=== PATIENT | female | born 1950 | race Caucasian/White ===

== ENCOUNTER 2021-04-06 10:51 | Observation (INO) ==
--- NOTE | 2020-11-27 10:10 | PAT Medication Instructions ---
Medication Instructions Date of Service November 27, 2020 Home Medications alprazolam 0.25 mg tablet 0.25 mg PO HS carvedilol 6.25 mg tablet 6.25 mg PO BID cetirizine 10 mg capsule (Zyrtec) 10 mg PO DAILY PRN fluticasone propionate 50 mcg/actuation nasal spray,suspension (Flonase Allergy Relief) 1 spray INTRANASAL DAILY PRN hydrochlorothiazide 25 mg tablet 25 mg PO QAM ipratropium bromide 0.02 % solution for inhalation 2.5 ml INHALATION Q6H PRN levothyroxine 75 mcg capsule 75 mcg PO QAM rosuvastatin 20 mg tablet 20 mg PO QDL triamcinolone acetonide 0.1 % topical cream 1 applic TOPICAL DAILY PRN Beet Root 1 dose PO QAM Cbd Gummie 2 dose PO QDL Lactobacil.acidophilus-Bifido.animalis 5 billion cell sprinkle capsule (Probiotic) 1 cap PO QAM ascorbic acid (vitamin C) 500 mg tablet,extended release (Vitamin C ER) 500 mg PO QAM aspirin 81 mg tablet,delayed release 81 mg PO 2XWK cholecalciferol (vitamin D3) 50 mcg (2,000 unit) tablet (Vitamin D3) 50 mcg PO QAM omega-3 fatty acids 1,000 mg PO QAM turmeric 400 mg capsule 400 mg PO QAM vit C,E,zinc,copper-lifbe5t 250 mg-lutein 5 mg-zeaxanthin 1 mg capsule (Ocuvite Adult 50 Plus) 1 cap PO QAM Continue as directed rosuvastatin 20 mg tablet 20 mg PO QDL aspirin 81 mg tablet,delayed release 81 mg PO 2XWK STOP taking 2 weeks before surgery omega-3 fatty acids 1,000 mg PO QAM turmeric 400 mg capsule 400 mg PO QAM vit C,E,zinc,copper-trdeb3u 250 mg-lutein 5 mg-zeaxanthin 1 mg capsule (Ocuvite Adult 50 Plus) 1 cap PO QAM Beet Root 1 dose PO QAM STOP taking 24 hours before surgery triamcinolone acetonide 0.1 % topical cream 1 applic TOPICAL DAILY PRN DO NOT take the morning of surgery cetirizine 10 mg capsule (Zyrtec) 10 mg PO DAILY PRN hydrochlorothiazide 25 mg tablet 25 mg PO QAM Cbd Gummie 2 dose PO QDL Lactobacil.acidophilus-Bifido.animalis 5 billion cell sprinkle capsule (Probiotic) 1 cap PO QAM ascorbic acid (vitamin C) 500 mg tablet,extended release (Vitamin C ER) 500 mg PO QAM cholecalciferol (vitamin D3) 50 mcg (2,000 unit) tablet (Vitamin D3) 50 mcg PO QAM Take morning of surgery With a small sip of water, OTHERWISE NOTHING TO EAT OR DRINK AFTER MIDNIGHT: carvedilol 6.25 mg tablet 6.25 mg PO BID fluticasone propionate 50 mcg/actuation nasal spray,suspension (Flonase Allergy Relief) 1 spray INTRANASAL DAILY PRN (if needed) ipratropium bromide 0.02 % solution for inhalation 2.5 ml INHALATION Q6H PRN (if needed) levothyroxine 75 mcg capsule 75 mcg PO QAM Take evening before surgery alprazolam 0.25 mg tablet 0.25 mg PO HS carvedilol 6.25 mg tablet 6.25 mg PO BID fluticasone propionate 50 mcg/actuation nasal spray,suspension (Flonase Allergy Relief) 1 spray INTRANASAL DAILY PRN (if needed) ipratropium bromide 0.02 % solution for inhalation 2.5 ml INHALATION Q6H PRN (if needed) Other Notes If you have any questions please call us at [phone] or [phone] or [phone] or [phone]
--- NOTE | 2020-11-28 11:48 | Anesthesiology Consultation ---
Date of Service November 28, 2020 Assessment & Plan (1) Encounter for pre-operative examination: Chart Review Chart Review: Acceptable Risk for Surgery (pending preop Covid testing results ) and Patient seen in Pre Admission Testing -Discussed chart with Dr. Cervantes- patient can proceed as scheduled Pt noncompliant with medications- seld d/c'ed cholesterol and HTN medications secondary to taking CBD gummies- pt was instructed to d/c'ed CBD gummies, restart prescription medications and contact PCP or instrument mechanic before stopping/changing medications- pt voices understanding and will restart prescription medications Per PAT appt on 11/28/20, patient denies any recent travel or large group activities. No known Covid positive contacts or Covid related symptoms. No known Covid infection in the past 90 days. Pt is vaccinated for Covid. Pt educated that preop Covid testing needs to be done 2-4 days prior to surgery (to follow up with surgeon for order and place of testing- did educate that test needs to be a PCR and results will need to be back by 12/22/20) = will await results. Educated on importance of self quarantining, social distancing and wearing mask in public for the patient one week prior to surgery and after Covid testing done Last seen by cardio 08/29/20= pt seen for follow up. Pt has had loud snoring. Hypertensive on exam- does have intolerance to several antihypertensives. Lifestyle modifications are recommended prior to pharmacotherapeutic measures secondary to medication intolerances Likely has sleep apnea- can also cause refractory HTN. Pt agreeable to home sleep study. Will also try low Na diet and exercise. Will leave cholesterol management to PCP discretion. (Pt has not yet has sleep study) History Surgery Operation Date: 12/25/20 10:05 Proposed Procedures p Left Total Knee Arthroplasty - Jamey Bartlett DO Height/Weight Height: 5 ft 3 in Weight: 107.8 kg Allergies Allergy/AdvReac Type Severity Reaction Status Date / Time spironolactone Allergy Intermediate Hives Verified 11/28/20 11:54 amlodipine Allergy Unknown Verified 11/28/20 11:54 ramipril [From Altace] Allergy Unknown Verified 11/28/20 11:54 Sulfa (Sulfonamide Allergy hives Verified 11/22/20 13:38 Antibiotics) atorvastatin [From Lipitor] AdvReac Intermediate Leg pain Verified 11/28/20 11:54 losartan AdvReac Intermediate Broke out Verified 11/28/20 11:54 valsartan AdvReac Intermediate Broke out Verified 11/28/20 11:54 Medications Home Medications Medication Instructions Recorded Confirmed Last Taken alprazolam 0.25 mg tablet 0.25 mg PO HS 11/01/20 11/22/20 Unknown carvedilol 6.25 mg tablet 6.25 mg PO BID 11/01/20 11/22/20 Unknown cetirizine 10 mg capsule (Zyrtec) 10 mg PO DAILY PRN 11/01/20 11/22/20 Unknown fluticasone propionate 50 1 spray INTRANASAL DAILY PRN 11/01/20 11/22/20 Unknown mcg/actuation nasal spray,suspension (Flonase Allergy Relief) hydrochlorothiazide 25 mg tablet 25 mg PO QAM 11/01/20 11/22/20 Unknown ipratropium bromide 0.02 % 2.5 ml INHALATION Q6H PRN 11/01/20 11/22/20 Unknown solution for inhalation levothyroxine 75 mcg capsule 75 mcg PO QAM 11/01/20 11/22/20 Unknown rosuvastatin 20 mg tablet 20 mg PO QDL 11/01/20 11/22/20 Unknown triamcinolone acetonide 0.1 % 1 applic TOPICAL DAILY PRN 11/01/20 11/22/20 Unknown topical cream Beet Root 1 dose PO QAM 11/22/20 11/22/20 Unknown Cbd Gummie 2 dose PO QDL 11/22/20 11/22/20 Unknown Lactobacil.acidophilus-Bifido.animalis 1 cap PO QAM 11/22/20 11/22/20 Unknown 5 billion cell sprinkle capsule (Probiotic) ascorbic acid (vitamin C) 500 mg 500 mg PO QAM 11/22/20 11/22/20 Unknown tablet,extended release (Vitamin C ER) aspirin 81 mg tablet,delayed 81 mg PO 2XWK 11/22/20 11/22/20 Unknown release cholecalciferol (vitamin D3) 50 50 mcg PO QAM 11/22/20 11/22/20 Unknown mcg (2,000 unit) tablet (Vitamin D3) omega-3 fatty acids 1,000 mg PO QAM 11/22/20 11/22/20 Unknown turmeric 400 mg capsule 400 mg PO QAM 11/22/20 11/22/20 Unknown vit C,E,zinc,copper-swnqc1i 250 1 cap PO QAM 11/22/20 11/22/20 Unknown mg-lutein 5 mg-zeaxanthin 1 mg capsule (Ocuvite Adult 50 Plus) Past Medical History Medical History (Updated 11/29/20 @ 11:04 by Sanna Bunch PA-C) Anxiety Atrial fibrillation Questionable after cardiac cath- no issues since that time- follows with cardio- on ASA and Coreg (no documentation of atrial fibrillation per cardio records) CAD (coronary artery disease) S/p BMS to LAD in 2004 Angioplasty to LAD in [address] Morris with Nupur Cardiac murmur Chronic per patient- no significant murmur noted on PAT exam on 11/28/20 Hyperlipidemia Hypertension Hypothyroidism Nausea and vomiting after administration of anesthetic agent after arthroscopic knee procedure Osteoarthritis Sleep apnea Possible - loud snoring- no hx of sleep study Exercise / Class Metabolic Activity III < 4 Walking/Shop/Light housework (one flight of stairs - mild SOB, no chest pain ) Past Family History Family History Father Prostate cancer Daughter Breast cancer Aunt Diabetes Brother Diabetes Past Surgical History Surgical History H/O bilateral breast reduction surgery History of arthroscopy left knee History of cardiac cath 2003 > 1 stent 2005 History of colonoscopy History of dilatation and curettage History of esophagogastroduodenoscopy (EGD) History of heart artery stent x1 > 2003 > for 90% blockage History of hysterectomy Hx of removal of cyst from back> fatty tumor Past Anesthesia History No Hx of Anesthesia Complications (with exception to PONV ) and No Family Hx of Anesthesia Complications History of PONV No Hx of Motion Sickness and History of PONV Social History Smoking Status: Never smoker Do You Dip or Chew Tobacco: No Hx Alcohol Use: Yes Alcohol type: wine alcohol intake frequency: a few times a week Hx Substance Use: No substance use type: does not use Review of Systems Chronic rhinitis - 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 No hx of seizures, stroke, ME. No hx of blood clots or blood transfusions Physical Exam Vital Signs VITALS BP 187/81 (pt self d/raheel Coreg and HCTZ - will restart today and monitor BP at home- will call PCP/cardio if continues to be elevated) P 63 TEMP 98.1 SP02 95% RESP 16 Constitutional no acute distress ENMT Mouth: no TMJ clicking Thyromental Distance: < 3.5 Finger Breadths (2.5) Mallampati Class: III Missing molars Neck + limited neck extension (minimal ) Respiratory normal respiratory effort; no respiratory distress Auscultation: lungs clear to auscultation bilaterally; no wheezes Cardiovascular Rate/Rhythm: regular rate and regular rhythm Heart Sounds: no murmur Vessels: no carotid bruit Musculoskeletal Spine: no pain with cervical ROM Extremities: extremities normal to inspection Psychiatric Orientation: alert Lab Results Anesthesia Preop Results Results Anesthesia Widget: WBC 8.14 K/uL (4.8-10.8) 11/28/20 Hgb 15.2 g/dL (12.0-16.0) 11/28/20 Hct 47.4 % (37-47) H 11/28/20 Plt 166 K/uL (130-400) 11/28/20 Na 140 mmol/L (136-145) 11/28/20 K 4.5 mmol/L (3.5-5.1) 11/28/20 Cl 104 mmol/L (98-107) 11/28/20 CO2 31 mmol/L (21-32) 11/28/20 BUN 16 mg/dl (7-18) 11/28/20 Creat 0.67 mg/dl (0.6-1.2) 11/28/20 Glucose Level 93 mg/dl (70-99) 11/28/20 PT 10.3 Seconds (9.0-12.0) 11/28/20 PTT 25.9 Seconds (21.0-31.0) 11/28/20 INR 1.0 (0.9-1.1) 11/28/20 Blood Type O Positive 11/28/20 Antibody Screen NEGATIVE 11/28/20 Testing Electrocardiogram Date: 11/28/20 Findings: + NSR @ (60bpm) Normal EKG per cardio. Chest X-Ray Date: 11/28/20 Findings: + NAD 3.1 x 0.9 cm elongated right midlung opacity. This favors atelectasis or mild airspace disease. However, a pulmonary nodule/mass cannot be completely excluded. A follow-up chest CT is recommended. Moderate cardiomegaly. No eviden ce for pulmonary edema. (Pt states she has chronic abnormal CXR- did bring in CXR report from 08/05/19- shows "small bandlike density below the minor fissure present on 02/06/16 is consistent with fibrosis or chronic discoid atelectasis." Will send CXR to PCP for continuity of care- discussed with Dr. Cervantes) Echocardiogram Date: 11/26/19 EF: 57% LV Function: normal RWMA: + none Other Findings: no LVH Valvular Disease: + no significant valvular disease LV size is normal Stress Test Date: 01/04/20 Type: nuclear Myocardial perfusion imaging is normal. No evidence of ischemia or prior infarction. Calculated EF 71%. LV global systolic function is normal. Findings show likely breast attenuation. Lexiscan EKG is negative for ischemia- some episodes of ventricular bigeminy noted during Lexiscan infusion.
--- NOTE | 2021-04-05 13:02 | History & Physical Report ---
Date of Service April 05, 2021 Assessment & Plan (1) Osteoarthritis of left knee: We will proceed with a left total knee arthroplasty. Postoperatively she will be started on aspirin for DVT prophylaxis and kept overnight in the hospital for postoperative medical management. She plans to use home health in [place] upon discharge. History of Present Illness Chief Complaint: Osteoarthritis of the left knee. Primary Care Provider: [place] Lynn Mary Laughlin is a pleasant 70-year-old female who is been doing with chronic worsening left knee pain. She has had a left knee arthroscopy with minimal relief. She has had multiple injections. After failing extensive conservative treatment, she has elected proceed with a left total knee arthroplasty. Allergies Allergy/AdvReac Type Severity Reaction Status Date / Time spironolactone Allergy Intermediate Hives Verified 03/29/21 11:20 amlodipine Allergy Unknown Unknown Verified 03/29/21 11:21 ramipril [From Altace] Allergy Unknown Unknown Verified 03/29/21 11:21 Sulfa (Sulfonamide Allergy Unknown hives Verified 03/29/21 11:21 Antibiotics) atorvastatin [From Lipitor] AdvReac Intermediate Leg pain Verified 03/29/21 11:20 losartan AdvReac Intermediate Broke out Verified 03/29/21 11:20 valsartan AdvReac Intermediate Broke out Verified 03/29/21 11:20 Home Medications Medication Instructions Recorded Confirmed Type alprazolam 0.25 mg tablet 0.25 mg PO HS 11/01/20 03/29/21 History carvedilol 6.25 mg tablet 6.25 mg PO BID 11/01/20 03/29/21 History cetirizine 10 mg capsule (Zyrtec) 10 mg PO DAILY PRN 11/01/20 03/29/21 History fluticasone propionate 50 1 spray INTRANASAL DAILY PRN 11/01/20 03/29/21 History mcg/actuation nasal spray,suspension (Flonase Allergy Relief) hydrochlorothiazide 25 mg tablet 25 mg PO QAM 11/01/20 03/29/21 History ipratropium bromide 0.02 % 2.5 ml INHALATION Q6H PRN 11/01/20 03/29/21 History solution for inhalation levothyroxine 75 mcg capsule 75 mcg PO QAM 11/01/20 03/29/21 History rosuvastatin 20 mg tablet 20 mg PO QDL 11/01/20 03/29/21 History triamcinolone acetonide 0.1 % 1 applic TOPICAL DAILY PRN 11/01/20 03/29/21 History topical cream Beet Root 1 dose PO QAM 11/22/20 03/29/21 History Lactobacil.acidophilus-Bifido.animalis 1 cap PO QAM 11/22/20 03/29/21 History 5 billion cell sprinkle capsule (Probiotic) ascorbic acid (vitamin C) 500 mg 500 mg PO QAM 11/22/20 03/29/21 History tablet,extended release (Vitamin C ER) aspirin 81 mg tablet,delayed 81 mg PO QAM 11/22/20 03/29/21 History release cholecalciferol (vitamin D3) 50 50 mcg PO QAM 11/22/20 03/29/21 History mcg (2,000 unit) tablet (Vitamin D3) omega-3 fatty acids 1,000 mg PO QAM 11/22/20 03/29/21 History turmeric 400 mg capsule 400 mg PO QAM 11/22/20 03/29/21 History vit C,E,zinc,copper-onebf2p 250 1 cap PO QAM 11/22/20 03/29/21 History mg-lutein 5 mg-zeaxanthin 1 mg capsule (Ocuvite Adult 50 Plus) Past Med/Surg History Medical History Anxiety Atrial fibrillation Questionable after cardiac cath- no issues since that time- follows with cardio- on ASA and Coreg (no documentation of atrial fibrillation per cardio records) CAD (coronary artery disease) S/p BMS to LAD in 2004 Angioplasty to LAD in [address] Morris with [facility] Cardiac murmur Chronic per patient- no significant murmur noted on PAT exam on 11/28/20 Hyperlipidemia Hypertension Hypothyroidism Osteoarthritis Sleep apnea Possible - loud snoring- no hx of sleep study SOB (shortness of breath) on exertion Surgical History H/O bilateral breast reduction surgery History of arthroscopy left knee History of cardiac cath 2003 > 1 stent 2005 History of colonoscopy History of dilatation and curettage History of esophagogastroduodenoscopy (EGD) History of heart artery stent x1 > 2003 > for 90% blockage History of hysterectomy TOTAL Hx of removal of cyst from back> fatty tumor Nausea and vomiting after administration of anesthetic agent after arthroscopic knee procedure Family History Father Prostate cancer Daughter Breast cancer Aunt Diabetes Brother Diabetes Social History Smoking Status: Never smoker Second Hand Exposure: No; Hx Alcohol Use: Yes Alcohol type: wine Hx Substance Use: No Preferred Language: Mongolian Communication Ability: Effective 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 Physical Exam On physical examination of the left knee, she walks independently. She has a brace on the left knee. She has range of motion of 0 to 120 degrees. She has no instability. She has pain of the distal femoral condyles. Constitutional WD/WN, vitals as above Eyes PERRL, conjunctivae normal, anicteric sclerae ENMT external ear and nose normal, oropharynx normal Neck trachea midline, no thyromegaly Respiratory normal respiratory effort Cardiovascular RRR, no murmur, no edema Gastrointestinal (Abdomen) normal bowel sounds, soft, nontender, no hepatosplenomegaly Psychiatric A+Ox3, euthymic affect Results & Data Results & Data Laboratory Results . Diagnostic Findings X-rays of the left knee do show advanced osteoarthritis with joint space narrowing, osteophyte formation, and [id number] articulation. PG Care Time/CCT Total # of Minutes Spent Total Time Spent with Patient: Total time spent is greater than 50% in coordination of care (as documented) at patient's floor/unit and/or counseling patient: Coding Level of Care Code None Diagnoses Osteoarthritis of left knee M17.12
--- NOTE | 2021-04-06 10:40 | History & Physical Bridge Note ---
Date of Service April 06, 2021 History & Physical Bridge Note I have examined the patient, reviewed the History & Physical and in the interval since the performance of the History & Physical I have noted the following changes of clinical significance: no changes noted
[~2021-04-06 10:51] MED LIST: ACETAMINOPHEN 500 MG TAB PO SCH; BUPIVACAINE 0.25% 30 ML VIAL ONE; EPINEPHRINE INSTIL SCH; EPINEPHRINE IV SCH; FAMOTIDINE 20 MG TAB PO SCH; GABAPENTIN 300 MG CAP PO SCH; HCL INSTIL SCH; KETOROLAC IV SCH; LR 500ML BOLUS, THEN 15ML/HR IV SCH; LR 60ML/HR IV SCH; ROPIVACAINE 0.5% HCL/PF 150 MG, BUPIVACAINE 0.75% MPF 20 ML, EPINEPHrine 30MG/30ML (OR ... INSTIL SCH; ROPIVACAINE INSTIL SCH; TRANEXAMIC ACID 1,000 MG **IV Intra-op IV SCH; TRANEXAMIC ACID 1,000 MG **IV Pre-op IV SCH; [UNRECOGNIZED DRUG - OTHER] INSTIL SCH; [UNRECOGNIZED DRUG - OTHER] IV SCH; ceFAZolin 2000MG 2,000 MG/15 ML SYR IV SCH; dexAMETHasone 4 MG TAB PO SCH
[2021-04-06] MEDS ORDERED: BUPIVACAINE 0.5 % 5 MG/1 ML PF 10ML VIAL ONE (11:28)
[2021-04-06] MEDS ORDERED: fentaNYL citrate 100 MCG/2 ML VIAL IV PRN (12:29)
[2021-04-06] MEDS ORDERED: ATROPINE SULFATE 0.1 MG/ML 10ML SYR IV PRN (12:29)
[2021-04-06] MEDS ORDERED: ONDANSETRON INJ 2 MG/ML 2 ML VIAL IV PRN ×2 (12:29→17:10)
[2021-04-06] MEDS ORDERED: ePHEDrine sulfate 50 MG/ML AMP IV PRN (12:29)
[2021-04-06] MEDS ORDERED: MIDAZOLAM HCL 1 MG/ML 2ML VIAL ONE ×2 (12:39)
--- NOTE | 2021-04-06 15:03 | Operative Report ---
PG Post Operative Report Pre & Post Diagnosis Operation Date: 04/06/21 12:45 Pre-Op Diagnosis: Degenerative Joint Disease Left Knee Post-Op Diagnosis: Degenerative Joint Disease Left Knee I identified the patient and participated in the time-out.: Yes Procedure Operation Date: 04/06/21 12:45 Actual Procedures p Left Total Knee Arthroplasty, Cemented(Left) - Jamey Bartlett DO Surgeon Jamey Bartlett DO Supply Specialist Jamey Messina PAC Estimated Blood Loss 10 Findings Consistent with Post-Op Diagnosis Specimens Left femoral and tibial bone Complications none Disposition Disposition: Recovery Room Indications Qian is a pleasant 70-year-old female has been dealing with chronic worsening left knee pain. X-rays and clinical examination were diagnostic for advanced osteoarthritis of the left knee. After failing conservative treatment, she elected proceed with a left total knee arthroplasty. Description of Procedure Implants used: I used a Loren Persona total knee arthroplasty system with a size 7 standard PS femur, D tibia with a 30 mm stem extension 28 mm oval patella, and a size 10 CPS polyethylene bearing. All components were cemented in place with Biomet cement. Qian arrived [facility] for the above procedure. She was seen in the preoperative holding area and the operative extremity was identified and signed. She was given a preoperative antibiotic, TXA, a spinal anesthetic and an adductor nerve block. She was taken back to the operating room and laid on the table in supine position. She was given basic sedation. The operative knee was then prepped and draped in sterile fashion. A timeout was done, and the patient and the operative extremity was properly identified. A midline incision was made directly over the patella. Dissection was taken ramya n to the extensor mechanism. A subvastus arthrotomy was used. The medial retinaculum was released and the fat pad was mostly excised. The knee was flexed and the ACL, PCL, and meniscus were removed. A drill was sent down the center of the femoral canal followed by an intramedullary ian. Off that ian a distal femoral cutting block was placed. 9 mm was resected off the distal femur at 5 of valgus. A posterior referencing AP sizing guide was then placed on the distal femur. The femur measured to be a size 7. 2 drill holes were placed in 3 of external rotation. A 4-in-1 cutting block was then impacted into place. Anterior, posterior, and chamfer cuts were then made. The proximal tibia was then exposed. An external tibial alignment guide was placed. A tibial cut guide was then anchored in place and the proximal tibia was then resected. The posterior aspect of the knee was then opened up and any additional meniscus fragments and osteophytes were removed. The tibia measured to be a size D. The tibial plate was then placed in the appropriate rotation and the tibia was drilled and punched. Trial components were then placed. I used a size 10 CPS polyethylene insert. The knee was brought through a full range of motion and felt to be stable. The peg holes for the femoral component were then drilled. The patella was then everted and 9 mm was resected off the posterior aspect of the patella. The patella measured to be a size 28 oval. 3 peg holes were then drilled. A trial patella was placed. The knee was once again brought through a full range of motion and felt to be stable. Trial components were then removed. The surrounding soft tissues were injected with 100 cc of an orthopedic pain control cocktail. All components were then cemented into place with Biomet cement. The final polyethylene insert was then snapped into place. Once cement was dry the tourniquet was deflated. Hemostasis was obtained. A dilute betadyne lavage was then done for 3 minutes. The joint was then irrigated with normal saline solution. The subvastus arthrotomy was then closed with #1 Vicryl suture. The skin was closed with 2-0 Vicryl, 3-0V lock suture, and leah. A soft compressive dressing was placed. She was then transferred to a hospital bed and taken to the postanesthesia care unit in stable condition. She tolerated the procedure well. Jamey Messina PA-C, was present for the entire procedure. He was critical for patient positioning, prepping, draping, retraction exposure, wound closure and application of sterile dressing. I attest to the content of the Intraoperative Record and any orders documented therein. Any exceptions are noted below.
--- NOTE | 2021-04-06 15:37 | XRay Report ---
XR knee LT 1 or 2V routine CLINICAL HISTORY: Postoperative evaluation. COMPARISON: Knee radiographs November 01, 2020. FINDINGS: Alignment of the total left knee arthroplasty is anatomic. There is no periprosthetic frac ture or unexpected radiopaque foreign body. There are skin leah. IMPRESSION: Expected findings following total left knee arthroplasty. ACT 112: Negative or not required by law. Electronically signed by: Anthony Wells M.D. 04/06/2021 3:36 PM
--- NOTE | 2021-04-06 15:40 | Anesthesiology Progress Note ---
Date of Service April 06, 2021 Anesthesia Post Procedure Vital Signs Vital Signs: Temp Pulse Pulse Resp BP BP Pulse Ox 04/06/21 15:30 60 17 148/79 H 95 04/06/21 15:20 61 18 125/74 95 04/06/21 15:14 36.5 C 68 20 114/62 94 04/06/21 11:32 36.6 C 67 20 204/108 H 93 Transfer of Care Handoff Completed per policy Notes Mental Status: alert / awake / arousable and participated in evaluation Nausea / Vomiting: adequately controlled Pain: adequately controlled Airway Patency, RR, SpO2: stable & adequate BP & HR: stable & adequate Hydration State: stable & adequate Neuraxial Anesthesia: was administered and sensory block is resolving Anesthetic Complications: no major complications apparent and Pt Satisfied with anesthetic care
[2021-04-06] MEDS ORDERED: TRIAMCINOLONE ACET 0.1% CR 15 GM TUBE TOP PRN (17:10)
[2021-04-06] MEDS ORDERED: oxyCODONE HCL IR 5 MG TAB (IMMEDIATE RELEASE) PO PRN (17:10)
[2021-04-06] MEDS ORDERED: MAGNESIUM HYDROXIDE SUSP 30 ML UDC PO PRN (17:10)
[2021-04-06] MEDS ORDERED: FLUTICASONE PROPIONATE NA SPR 16 GM BTL NAE PRN (17:10)
[2021-04-06] MEDS ORDERED: IPRATROPIUM BROMIDE NEB SOLN 0.02% 2.5 ML VIAL INH PRN (17:10)
[2021-04-06] MEDS ORDERED: METOCLOPRAMIDE HCL INJ 5 MG/ML 2 ML VIAL IV PRN (17:10)
[2021-04-06] MEDS ORDERED: NALOXONE HCL 0.4 MG/1 ML VIAL/CARP IV PRN (17:10)
[2021-04-06] MEDS ORDERED: bisacodyL 10 MG SUPP PR PRN (17:10)
[2021-04-06] MEDS ORDERED: HYDROmorphone INJ 0.5 MG/0.5 ML SYR IV PRN (17:10)
[2021-04-06] MEDS: SODIUM CHLORIDE 0.9% 1000ML 1,000 ML IV SCH (17:18)
[2021-04-06] MEDS ORDERED: CETIRIZINE HCL 10 MG TABLET PO PRN (18:35)
[2021-04-06] MEDS: DOCUSATE SODIUM 100 MG CAP PO SCH (20:11)
[2021-04-06] MEDS: ceFAZolin 2000MG 2,000 MG/15 ML SYR IV SCH (20:11)
[2021-04-06] MEDS: ASPIRIN 81 MG ECTAB PO SCH (20:11)
[2021-04-06] MEDS: carvediloL 6.25 MG TAB PO SCH (20:14)
[2021-04-06] MEDS: KETOROLAC TROMETHAMINE 15 MG/ML VIAL IV SCH (20:16)
[2021-04-06] MEDS ORDERED: SENNA 8.6 MG TAB PO SCH (21:00)
[2021-04-06] MEDS ORDERED: ALPRAZolam 0.25 MG TABLET PO SCH (21:00)
[2021-04-06] MEDS: ACETAMINOPHEN 500 MG TAB PO SCH (21:25)
[2021-04-07] MEDS: KETOROLAC TROMETHAMINE 15 MG/ML VIAL IV SCH ×3 (02:07→13:18)
[2021-04-07] MEDS: SODIUM CHLORIDE 0.9% 1000ML 1,000 ML IV SCH (02:50)
[2021-04-07] MEDS ORDERED: EPINEPHRINE INSTIL SCH (06:00)
[2021-04-07] MEDS ORDERED: ROPIVACAINE INSTIL SCH (06:00)
[2021-04-07] MEDS ORDERED: HCL INSTIL SCH (06:00)
[2021-04-07] MEDS ORDERED: [UNRECOGNIZED DRUG - OTHER] INSTIL SCH (06:00)
[2021-04-07] MEDS: ACETAMINOPHEN 500 MG TAB PO SCH ×2 (06:15→13:18)
[2021-04-07] MEDS: ceFAZolin 2000MG 2,000 MG/15 ML SYR IV SCH (06:16)
[2021-04-07] MEDS ORDERED: LEVOTHYROXINE SODIUM 75 MCG TABLET PO SCH (06:30)
--- NOTE | 2021-04-07 07:26 | Orthopedic Progress Note ---
Date of Service April 07, 2021 Assessment & Plan (1) Status post left knee replacement: Overall she is doing very well. She denies any too much pain in the left knee. She will be seen by physical therapy today for ambulation and range of motion exercises. She is on aspirin for DVT prophylaxis. The dressing can be changed today after physical therapy. She can be discharged home later today. She will follow-up with orthopedics in 2 weeks. Jackie Laughlin was seen and examined at bedside this morning. Overall she is doing very well. She is 90 much pain in the left knee. She has been up and ambulating to the bathroom. She has no complaints. Review of Systems All systems reviewed & are unremarkable except as noted in HPI & below. Physical Exam On physical examination of the left knee, there is a little bit of bloody drainage on the dressing. She has active dorsiflexion plantarflexion of her left ankle. Sensation is intact throughout.. Results & Data Results & Data Laboratory Results . Diagnostic Findings X-rays of the left knee show the prosthesis to be in anatomic alignment without any evidence of fracture, desiccation, or loosening. PG Care Time/CCT Total # of Minutes Spent Total Time Spent with Patient: Total time spent is greater than 50% in coordination of care (as documented) at patient's floor/unit and/or counseling patient: Coding Level of Care Code 61221 Post Operative Follow-Up Diagnoses Status post left knee replacement Z96.652
--- NOTE | 2021-04-07 07:27 | Discharge Summary ---
Date of Service April 07, 2021 Admission HPI (Per Admitting) Qian is a pleasant 70-year-old female who is been doing with chronic worsening left knee pain. She has had a left knee arthroscopy with minimal relief. She has had multiple injections. After failing extensive conservative treatment, she has elected proceed with a left total knee arthroplasty. Admission Exam (Per Admitting) On physical examination of the left knee, she walks independently. She has a brace on the left knee. She has range of motion of 0 to 120 degrees. She has no instability. She has pain of the distal femoral condyles. Principal Diagnosis Same as "Discharge Diagnosis" noted below under Discharge Instructions. Discharge Exam On physical examination of the left knee, there is a little bit of bloody drainage on the dressing. She has active dorsiflexion plantarflexion of her left ankle. Sensation is intact throughout.. Discharge Data Procedures Performed Operation Date: 04/06/21 12:45 Actual Procedures p Left Total Knee Arthroplasty, Cemented(Left) - Jamey Bartlett DO Ordered Studies 04/06/21 05:00 US - OR guided needle placemen Routine Hospital Course (1) Status post left knee replacement: On April 06, 2021 Qian arrived at [facility] and underwent a left knee replaced without complication. She had a spinal anesthetic. Postoperatively she was started on aspirin for DVT prophylaxis and transferred to the general orthopedic floors. Her hospital course was uneventful. On postop day #1 her vital signs were stable and her pain was well controlled. She was able to participate well with physical therapy doing ambulation and range of motion exercises. She was then discharged home. She will follow-up with orthopedics in 2 weeks. PG Care Time/CCT Total # of Minutes Spent Total Time Spent with Patient: Total time spent is greater than 50% in coordination of care (as documented) at patient's floor/unit and/or counseling patient: Discharge Plan Discharge Items Patient Disposition: Home - Home Health Services Reason For Visit: DJD Left Knee Discharge Diagnosis: Left knee replacement Activity: As commented below Non-emergency contact: Surgeon Call non-emergency contact if: your wound has increased redness and your wound has increased drainage Follow-up/Referrals: Guanaco Hernandez M.D. [Primary Care Provider] - Diet: Regular Addtl Attending Provider Instructions: Activity and Therapy Recommendations: * If you are using [facility] then therapy will be provided at your home until they feel you have accomplished all of your goals. * If you are using [facility] then Physical Therapy will be provided until they feel you are ready to start Outpatient Physical Therapy. * If you are not using home therapy then Outpatient Physical Therapy should start about 3-5 days from your day of surgery. Therapy will last about 6-10 weeks * It is important not to put a pillow under your knee when you are relaxing or sleeping. It is just as important to make sure you are getting your knee perfectly straight as it is to regain your knee bend. * You were shown a series of exercises in the hospital. Do these exercises three times each day including the exercises you were shown in physical therapy. * Get up and walk several times each day. For the first four weeks, try not to stand or walk for more than one hour at a time. If you do stand or walk for more than one hour, you will not hurt anything, but your leg will likely swell. * As you feel comfortable, you may change from the walker or crutches to a cane and then to independent walking. Medications: * Narcotic You will likely be sent home from the hospital with a prescription for the narcotic pain medication that worked best throughout your stay. * Aspirin Most patients will be required to take Aspirin 81mg twice a day for 6 weeks after surgery. This is obtained [id number] and a prescription is not necessary. * Other medications may be prescribed for specific circumstances. If you have any questions, please call the office at . * Resume previous home medications unless otherwise instructed TEDs/Elastic Stockings: The white elastic stockings help limit swelling and prevent blood clots from forming in your legs.~ The more you wear them, the more they work. Wear them for six weeks. Dressing Care: The dressing can be changed after physical therapy on postop day #1. Daily dry dressing changes for a few days, especially if the incision is still draining some. If the incision is not draining then you may leave the leah open to air. If there is a little bit of drainage or if the leah are getting stuck on your clothing then cover the incision with a dry dressing. The leah will be removed at your 2 week follow-up appointment. Showering: You may shower 5 days from the day of surgery as long as the incision is no longer draining. You may shower with the leah exposed. Let soapy water run over the leah and pat them dry. Do not scrub or soak the incision. Things To Watch For: * Drainage from the incision site that occurs more than one week after your surgery. * Increased redness at the incision site. * Fever above 102 degrees Fahrenheit. * Unusual chest pain or shortness of breath. * Call [facility] at with any of the above problems Follow-Up Visit: Follow-up with Dr. Bartlett's PA (Jamey Messina) 2-3 weeks after your day of surgery. He will remove your leah and answer any questions. If you have any additional questions or concerns, Dr Bartlett is usually in the office at the same time and will be available An appointment was probably scheduled when you signed-up for surgery in the office. If you have any questions call Office Instructions: More detailed instructions as well as Frequently Asked Questions were provided in a folder by our office when you signed-up for surgery. Please review these instructions when you get home. If you have any further questions or concerns, please feel free to call the office at [phone] Pending Studies at Discharge: No Stand-Alone Forms: [facility], Smoking Cessation Medications and DC Order Prescriptions: New hydrocodone-acetaminophen 5-325 mg tablet 1 tab PO Q6H PRN (Reason: pain) Qty: 40 RF: 0 Continued levothyroxine 75 mcg capsule 75 mcg PO QAM RF: 0 carvedilol 6.25 mg tablet 6.25 mg PO BID RF: 0 hydrochlorothiazide 25 mg tablet 25 mg PO QAM RF: 0 rosuvastatin 20 mg tablet 20 mg PO QDL RF: 0 Zyrtec 10 mg capsule 10 mg PO DAILY PRN (Reason: Allergy Symptoms) RF: 0 triamcinolone acetonide 0.1 % cream 1 applic topical DAILY PRN (Reason: Rash) RF: 0 fluticasone propionate [Flonase Allergy Relief] 50 mcg/actuation spray,suspension 1 spray intranasal DAILY PRN (Reason: Congestion) RF: 0 alprazolam 0.25 mg tablet 0.25 mg PO HS RF: 0 ipratropium bromide 0.02 % solution 2.5 ml inhalation Q6H PRN (Reason: Congestion) RF: 0 ascorbic acid (vitamin C) [Vitamin C] 500 mg Tablet Extended Release 500 mg PO QAM RF: 0 [place] 3 Capsule 1,000 mg PO QAM RF: 0 cholecalciferol (vitamin D3) [Vitamin D3] 50 mcg (2,000 unit) Tablet 50 mcg PO QAM RF: 0 Ocuvite Adult 50 Plus 250-5-1 mg Capsule 1 cap PO QAM RF: 0 Probiotic 5 billion cell Capsule, Sprinkle 1 cap PO QAM RF: 0 turmeric 400 mg Capsule 400 mg PO QAM RF: 0 Beet Root 1 dose PO QAM RF: 0 Changed aspirin 81 mg Tablet,Delayed Release (Dr/Ec) 81 mg PO BID 42 Days Qty: 0 RF: 0 Discharge Orders: Discharge Order (Routine); Ordered 04/07/21 Ordered By: Jamey Bartlett Admission Data Admit Date/Time: 04/06/21 15:17 Attending Provider: Jamey Bartlett Admit Provider: Jamey Bartlett Primary Care Provider: Guanaco Hernandez
[2021-04-07 07:52] VITALS: BP 135/79; PULSE 64; TEMP 98.1; O2SAT 90
[2021-04-07] MEDS ORDERED: dexAMETHasone 4 MG TAB PO SCH (08:00)
[2021-04-07] MEDS: ASPIRIN 81 MG ECTAB PO SCH (08:03)
[2021-04-07] MEDS: carvediloL 6.25 MG TAB PO SCH (08:03)
[2021-04-07] MEDS: DOCUSATE SODIUM 100 MG CAP PO SCH (08:03)
[2021-04-07] MEDS ORDERED: MULTIVITAMIN TAB PO SCH (09:00)
[2021-04-07] MEDS ORDERED: hydroCHLOROthiazide 25 MG TAB PO SCH (09:00)
[2021-04-07] MEDS ORDERED: ROSUVASTATIN CALCIUM 20 MG TAB PO SCH (11:30)
== END 2021-04-07 14:27 | disposition home health service (06) ==
LOC: ASU 10:51 → 3E 10:51

== ENCOUNTER 2022-04-29 09:51 | Observation (INO) ==
--- NOTE | 2022-04-11 10:06 | PAT Medication Instructions ---
Medication Instructions Date of Service April 11, 2022 Home Medications alprazolam 0.25 mg tablet 0.25 mg PO TID PRN carvedilol 6.25 mg tablet 6.25 mg PO BID cetirizine 10 mg capsule (Zyrtec) 10 mg PO DAILY PRN fluticasone propionate 50 mcg/actuation nasal spray,suspension (Flonase Allergy Relief) 1 spray intranasal DAILY PRN hydrochlorothiazide 25 mg tablet 25 mg PO QAM ipratropium bromide 0.02 % solution for inhalation 2.5 ml inhalation Q6H PRN levothyroxine 75 mcg capsule 75 mcg PO QAM rosuvastatin 20 mg tablet 20 mg PO QDL triamcinolone acetonide 0.1 % topical cream 1 applic topical DAILY PRN Beet Root 1 dose PO QAM Lactobacil.acidophilus-Bifido.animalis 5 billion cell sprinkle capsule (Probiotic) 1 cap PO QAM ascorbic acid (vitamin C) 500 mg tablet,extended release (Vitamin C ER) 500 mg PO QAM cholecalciferol (vitamin D3) 50 mcg (2,000 unit) tablet (Vitamin D3) 50 mcg PO QAM vit C,E,zinc,copper-axyuw7q 250 mg-lutein 5 mg-zeaxanthin 1 mg capsule (Ocuvite Adult 50 Plus) 1 cap PO QAM albuterol sulfate 90 mcg/actuation aerosol inhaler 1 inh inhalation QID PRN aspirin 81 mg tablet,delayed release 81 mg PO HS nitroglycerin 0.4 mg sublingual tablet 0.4 mg sublingual UD PRN Continue as directed rosuvastatin 20 mg tablet 20 mg PO QDL nitroglycerin 0.4 mg sublingual tablet 0.4 mg sublingual UD PRN(if needed) STOP taking 2 weeks before surgery (or as soon as possible if surgery is within 2 weeks) Beet Root 1 dose PO QAM vit C,E,zinc,copper-cycgn8s 250 mg-lutein 5 mg-zeaxanthin 1 mg capsule (Ocuvite Adult 50 Plus) 1 cap PO QAM STOP taking 24 hours before surgery triamcinolone acetonide 0.1 % topical cream 1 applic topical DAILY PRN DO NOT take the morning of surgery cetirizine 10 mg capsule (Zyrtec) 10 mg PO DAILY PRN hydrochlorothiazide 25 mg tablet 25 mg PO QAM Lactobacil.acidophilus-Bifido.animalis 5 billion cell sprinkle capsule (Probiotic) 1 cap PO QAM ascorbic acid (vitamin C) 500 mg tablet,extended release (Vitamin C ER) 500 mg PO QAM cholecalciferol (vitamin D3) 50 mcg (2,000 unit) tablet (Vitamin D3) 50 mcg PO QAM Take morning of surgery With a small sip of water, OTHERWISE NOTHING TO EAT OR DRINK AFTER MIDNIGHT: alprazolam 0.25 mg tablet 0.25 mg PO TID PRN(if needed) carvedilol 6.25 mg tablet 6.25 mg PO BID fluticasone propionate 50 mcg/actuation nasal spray,suspension (Flonase Allergy Relief) 1 spray intranasal DAILY PRN(if needed) ipratropium bromide 0.02 % solution for inhalation 2.5 ml inhalation Q6H PRN(if needed) levothyroxine 75 mcg capsule 75 mcg PO QAM albuterol sulfate 90 mcg/actuation aerosol inhaler 1 inh inhalation QID PRN(if needed) Take evening before surgery alprazolam 0.25 mg tablet 0.25 mg PO TID PRN(if needed) carvedilol 6.25 mg tablet 6.25 mg PO BID ipratropium bromide 0.02 % solution for inhalation 2.5 ml inhalation Q6H PRN(if needed) albuterol sulfate 90 mcg/actuation aerosol inhaler 1 inh inhalation QID PRN(if needed) aspirin 81 mg tablet,delayed release 81 mg PO HS (unless directed otherwise by surgeon) Other Notes If you have any questions please call us at [phone] or [phone] or [phone] or [phone]
--- NOTE | 2022-04-11 14:09 | Anesthesiology Consultation ---
Date of Service April 11, 2022 Assessment & Plan (1) Encounter for pre-operative examination: - awaiting cardiology and pulmonology clearances, will request previous pulmonology testing/imaging in the past year. PAT testing to be faxed to both offices. - awaiting confirmed ekg, will fax tracing with cardio form for pre-op evaluation to her safety coordinator. Pulmonology clearance form completed regarding chronic dyspnea, abnormal CXR and faxed to MARGIE Peralta. - abnormal CXR: Similar appearing linear ill-defined right midlung opacity measuring 3.3 cm (in comparison to 11/28/20 CXR). Correlation with a nonemergent follow-up chest CT recommended to exclude an underlying pulmonary nodule. Pt aware. - pt states needed to take nitro 3 weeks ago with palpitations and chest heaviness, resolved after 2 nitros. She denies any additional episodes of either or taking nitro since that time. She was instructed to f/u with cardiology and follow their recommendations. She was advised will need cardiology clearance prior to surgery. Surgeon's office made aware of needed cardio and pulm clearances. Outpatient joint assessment: Patient is currently scheduled for inpatient pathway. If re-evaluated pending system levels during current pandemic/surgeon requests outpatient pathway, patient is not acceptable candidate for outpatient joint program from anesthesia standpoint. Chart Review Chart Review: Pending: Refer to Additional Notes / Consult section and Patient seen in Pre Admission Testing Teaching & Discussion Pre-Anesthesia Teaching/Discussion Notes: Instructed NPO after midnight before surgery, except medications with 15 cc of water. Medication instructions provided according to the PAT guidelines. History Surgery Operation Date: 04/16/22 13:35 Proposed Procedures p Revision Left Total Knee Arthroplasty - Jamey Bartlett DO Height/Weight Height: 5 ft 3 in Weight: 99.9 kg Allergies Allergy/AdvReac Type Severity Reaction Status Date / Time spironolactone Allergy Intermediate Hives Verified 04/11/22 09:07 Sulfa (Sulfonamide Allergy Intermediate hives Verified 04/11/22 09:07 Antibiotics) amlodipine Allergy Mild UNSURE OF Verified 04/11/22 09:07 REACTION ramipril [From Altace] Allergy Unknown UNSURE OF Verified 04/11/22 09:07 REACTION atorvastatin [From Lipitor] AdvReac Intermediate Leg pain Verified 04/11/22 09:07 hydrocodone AdvReac Mild N/V Verified 04/11/22 09:07 losartan AdvReac Mild Rash Verified 04/11/22 09:07 tramadol AdvReac Mild N/V Verified 04/11/22 09:07 valsartan AdvReac Mild Rash Verified 04/11/22 09:07 Medications Home Medications Medication Instructions Recorded Confirmed Last Taken alprazolam 0.25 mg tablet 0.25 mg PO TID PRN Anxiety 11/01/20 04/11/22 04/05/21 23:00 carvedilol 6.25 mg tablet 6.25 mg PO BID 11/01/20 04/11/22 04/06/21 06:30 cetirizine 10 mg capsule (Zyrtec) 10 mg PO DAILY PRN Allergy Symptoms 11/01/20 04/11/22 Unknown fluticasone propionate 50 1 spray intranasal DAILY PRN 11/01/20 04/11/22 04/05/21 08:00 mcg/actuation nasal Congestion spray,suspension (Flonase Allergy Relief) hydrochlorothiazide 25 mg tablet 25 mg PO QA 11/01/20 04/11/22 04/02/21 08:00 ipratropium bromide 0.02 % 2.5 ml inhalation Q6H PRN 11/01/20 04/11/22 Unknown solution for inhalation Congestion levothyroxine 75 mcg capsule 75 mcg PO QA 11/01/20 04/11/22 04/06/21 06:30 rosuvastatin 20 mg tablet 20 mg PO QDL 11/01/20 04/11/22 04/05/21 08:00 triamcinolone acetonide 0.1 % 1 applic topical DAILY PRN Rash 11/01/20 04/11/22 Unknown topical cream Beet Root 1 dose PO QA 11/22/20 04/11/22 03/23/21 08:00 Lactobacil.acidophilus-Bifido.animalis 1 cap PO QA 11/22/20 04/11/22 03/23/21 08:00 5 billion cell sprinkle capsule (Probiotic) ascorbic acid (vitamin C) 500 mg 500 mg PO QAM 11/22/20 04/11/22 03/23/21 08:00 tablet,extended release (Vitamin C ER) cholecalciferol (vitamin D3) 50 50 mcg PO QAM 11/22/20 04/11/22 Unknown mcg (2,000 unit) tablet (Vitamin D3) vit C,E,zinc,copper-epiqi3p 250 1 cap PO QAM 11/22/20 04/11/22 03/23/21 08:00 mg-lutein 5 mg-zeaxanthin 1 mg capsule (Ocuvite Adult 50 Plus) albuterol sulfate 90 mcg/actuation 1 inh inhalation QID PRN SHORT OF 04/11/22 04/11/22 Unknown aerosol inhaler BREATH aspirin 81 mg tablet,delayed 81 mg PO HS 04/11/22 04/11/22 Unknown release nitroglycerin 0.4 mg sublingual 0.4 mg sublingual UD PRN Chest Pain 04/11/22 Unknown tablet Past Medical History Medical History (Updated 04/12/22 @ 08:57 by Camryn Ly PA-C) Anxiety Atrial fibrillation ? "I THINK SO">FOLLOWS WITH [facility]; no reported hx afib in available cardio documents CAD (coronary artery disease) S/p BMS to LAD in 2004 Angioplasty to LAD in [address] Morris with N[facility] Cardiac murmur GERD (gastroesophageal reflux disease) controlled, stable per pt Heart palpitations Hyperlipidemia Hypertension controlled, stable per pt Hypothyroidism Scoliosis "MILD" SOB (shortness of breath) on exertion follows with [facility] Nupur pulmonology, last rescue inhaler use > 3 months ago Thyroid nodule BIOPSY IN PAST Urinary leakage WITH FREQUENCY Patient denies h/o stroke, seizures, heart attack, heart failure, DM, blood clots or blood transfusions. Exercise / Class Metabolic Activity III < 4 Walking/Shop/Light housework (ambulates with rolling walker, denies chest discomfort or shortness of breath with usual activities) Past Family History Family History Father Prostate cancer Daughter Breast cancer Aunt Diabetes Brother Diabetes Other No family history of adverse response to anesthesia Past Surgical History Surgical History (Updated 04/11/22 @ 14:25 by Camryn Ly PA-C) H/O bilateral breast reduction surgery H/O total hysterectomy History of appendectomy History of arthroscopy LEFT KNEE History of blepharoplasty History of cardiac cath 2004 & 2005 > 1 TOTAL stent History of colonoscopy History of dilatation and curettage History of esophagogastroduodenoscopy (EGD) History of heart artery stent x1 > 2005 > for 90% blockage History of total knee replacement LEFT 04/06/21 SAB L4-L5 1 attempt + PNB. Hx of removal of cyst from back> fatty tumor Nausea and vomiting after administration of anesthetic agent denies needing scop patch Past Anesthesia History No Hx of Anesthesia Complications and No Family Hx of Anesthesia Complications History of PONV No Hx of Motion Sickness and History of PONV (denies needing scop patch) Social History Smoking Status: Never smoker Do You Dip or Chew Tobacco: No Hx Alcohol Use: Yes Alcohol type: wine alcohol intake frequency: a few times a month Hx Substance Use: No substance use type: does not use Review of Systems Snoring, denies witnessed apneas. Patient denies chest pain, fever, chills, cough, or wheezing. Physical Exam Vital Signs Vitals BP 152/71 P 59 TEMP 97.7 SP02 95% on RA RESP 18 Physical Full cervical extension range of motion without pain TMD 3.5 finger breadths Mallampati Score 3 Dentition: intact, denies chipped or loose teeth, caps/crowns, implants or bridges Lungs: normal respiratory effort. Clear throughout to auscultation, no adventitious breath sounds Cardiac: regular rate and rhythm, no murmurs noted Carotid arteries: negative bruit bilat Lab Results Anesthesia Preop Results Results Anesthesia Widget: WBC 10.01 K/ul (4.8-10.8) 04/11/22 Hgb 13.6 g/dl (12.0-16.0) 04/11/22 Hct 43.7 % (37.0-47.0) 04/11/22 Plt 190 K/uL (130-400) 04/11/22 Na 140 mmol/L (136-145) 04/11/22 K 4.4 mmol/L (3.5-5.1) 04/11/22 Cl 102 mmol/L (98-107) 04/11/22 CO2 36 mmol/L (21-32) H 04/11/22 BUN 25 mg/dl (6-23) H 04/11/22 Creat 0.75 mg/dl (0.6-1.2) 04/11/22 Glucose Level 92 mg/dl (70-99(Fasting)) 04/11/22 PT 10.9 Seconds (9.0-12.0) 04/11/22 PTT 25.8 Seconds (21.0-31.0) 04/11/22 INR 1.0 (0.9-1.1) 04/11/22 Blood Type O Positive 04/11/22 Antibody Screen NEGATIVE 04/11/22 Testing Electrocardiogram Date: 04/11/22 Sinus bradycardia with marked sinus arrhythmia, rate 50 bpm Chest X-Ray Date: 04/11/22 Cardiac silhouette is enlarged. Atherosclerosis of the aorta. No pneumothorax, large pleural effusion or overt pulmonary edema. 3.3 cm linear ill-defined right midlung opacity is seen best on the PA view, similar to prior. Degenerative changes of the shoulders and spine. Chronic deformity of the right proximal humerus. IMPRESSION: 1. No acute process. 2. Similar appearing linear ill-defined right midlung opacity measuring 3.3 cm. Correlation with a nonemergent follow-up chest CT recommended to exclude an underlying pulmonary nodule. Echocardiogram Date: 11/26/19 EF 57% No significant valvular pathology Stress Test Date: 01/04/20 Pharmacologic No evidence of ischemia or prior infarction EF 71% COVID-19 Risk Screen Screening Information COVID-19 Screen Date: 04/11/22 Exposure 21 Days Family/Household +COVID Last 21 Days: No Exposure 10 Days Any COVID Exposure Last 10 Days: No Symptoms Last 10 Days Experienced COVID Sx Last 10 Days: No + COVID 0-90 Days COVID + in Last 0-90 Days: No
--- NOTE | 2022-04-29 06:38 | History & Physical Report ---
Date of Service April 29, 2022 Assessment & Plan (1) Aseptic loosening of prosthetic knee: We will proceed with a revision left knee replacement surgery. Intraoperatively I will obtain some frozen sections to help ensure there is no signs of infection. Postoperatively she will be started on aspirin for DVT prophylaxis and kept overnight in the hospital for postop medical management. History of Present Illness Chief Complaint: Aseptic loosening of the left knee. Primary Care Provider: Guanaco Lynn Mary Laughlin is a pleasant 71-year-old female who I did a left knee replacement on in March 2021. She did very well for the first year. In January 2022 she woke up and began having significant pain in her left knee. She has been almost unable to bear weight on it. Initial x-rays did not look too bad. I did get a CT scan of the left knee which showed some possible early loosening of the tibial implant. She was having some pain that was radiating down her tibia towards her foot. I also obtain x-rays and an MRI of her lumbar spine which was essentially negative. She never had an effusion. I have done multiple aspiration attempts in the office and was unable to aspirate any fluid. Her sed rate and CRP were very slightly elevated but near normal. After failing about 3 months of conservative treatment, her symptoms were not improving. I obtained a bone scan of the left knee and it showed loosening of the tibial prosthesis. She has elected to proceed with a revision left knee replacement surgery.. Allergies Allergy/AdvReac Type Severity Reaction Status Date / Time spironolactone Allergy Intermediate Hives Verified 04/11/22 09:07 Sulfa (Sulfonamide Allergy Intermediate hives Verified 04/11/22 09:07 Antibiotics) amlodipine Allergy Mild UNSURE OF Verified 04/11/22 09:07 REACTION ramipril [From Altace] Allergy Unknown UNSURE OF Verified 04/11/22 09:07 REACTION atorvastatin [From Lipitor] AdvReac Intermediate Leg pain Verified 04/11/22 09:07 hydrocodone AdvReac Mild N/V Verified 04/11/22 09:07 losartan AdvReac Mild Rash Verified 04/11/22 09:07 tramadol AdvReac Mild N/V Verified 04/11/22 09:07 valsartan AdvReac Mild Rash Verified 04/11/22 09:07 Home Medications Medication Instructions Recorded Confirmed Type alprazolam 0.25 mg tablet 0.25 mg PO TID PRN Anxiety 11/01/20 04/11/22 History carvedilol 6.25 mg tablet 6.25 mg PO BID 11/01/20 04/11/22 History cetirizine 10 mg capsule (Zyrtec) 10 mg PO DAILY PRN Allergy Symptoms 11/01/20 04/11/22 History fluticasone propionate 50 1 spray intranasal DAILY PRN 11/01/20 04/11/22 History mcg/actuation nasal Congestion spray,suspension (Flonase Allergy Relief) hydrochlorothiazide 25 mg tablet 25 mg PO QAM 11/01/20 04/11/22 History ipratropium bromide 0.02 % 2.5 ml inhalation Q6H PRN 11/01/20 04/11/22 History solution for inhalation Congestion levothyroxine 75 mcg capsule 75 mcg PO QAM 11/01/20 04/11/22 History rosuvastatin 20 mg tablet 20 mg PO QDL 11/01/20 04/11/22 History triamcinolone acetonide 0.1 % 1 applic topical DAILY PRN Rash 11/01/20 04/11/22 History topical cream Beet Root 1 dose PO QAM 11/22/20 04/11/22 History Lactobacil.acidophilus-Bifido.animalis 1 cap PO QAM 11/22/20 04/11/22 History 5 billion cell sprinkle capsule (Probiotic) ascorbic acid (vitamin C) 500 mg 500 mg PO QAM 11/22/20 04/11/22 History tablet,extended release (Vitamin C ER) cholecalciferol (vitamin D3) 50 50 mcg PO QAM 11/22/20 04/11/22 History mcg (2,000 unit) tablet (Vitamin D3) vit C,E,zinc,copper-rzbfp4a 250 1 cap PO QAM 11/22/20 04/11/22 History mg-lutein 5 mg-zeaxanthin 1 mg capsule (Ocuvite Adult 50 Plus) albuterol sulfate 90 mcg/actuation 1 inh inhalation QID PRN SHORT OF 04/11/22 04/11/22 History aerosol inhaler BREATH aspirin 81 mg tablet,delayed 81 mg PO HS 04/11/22 04/11/22 History release nitroglycerin 0.4 mg sublingual 0.4 mg sublingual UD PRN Chest Pain 04/11/22 History tablet Past Med/Surg History Medical History Anxiety Atrial fibrillation ? "I THINK SO">FOLLOWS WITH [facility]>KELLEN CUELLAR; no reported hx afib in available cardio documents CAD (coronary artery disease) S/p BMS to LAD in 2004 Angioplasty to LAD in [address] Morris with Nupur Cardiac murmur mild to moderate aortic regurgitation GERD (gastroesophageal reflux disease) controlled, stable per pt Heart palpitations Hyperlipidemia Hypertension controlled, stable per pt Hypothyroidism LVH (left ventricular hypertrophy) Scoliosis "MILD" SOB (shortness of breath) on exertion follows with [facility], last rescue inhaler use > 3 months ago Thyroid nodule BIOPSY IN PAST Urinary leakage WITH FREQUENCY Surgical History H/O bilateral breast reduction surgery H/O total hysterectomy History of appendectomy History of arthroscopy LEFT KNEE History of blepharoplasty History of cardiac cath 2004 & 2005 > 1 TOTAL stent History of colonoscopy History of dilatation and curettage History of esophagogastroduodenoscopy (EGD) History of heart artery stent x1 > 2005 > for 90% blockage History of total knee replacement LEFT 04/06/21 SAB L4-L5 1 attempt + PNB. Hx of removal of cyst from back> fatty tumor Nausea and vomiting after administration of anesthetic agent denies needing scop patch Family History Father Prostate cancer Daughter Breast cancer Aunt Diabetes Brother Diabetes Other No family history of adverse response to anesthesia Social History Smoking Status: Never smoker Second Hand Exposure: No; Do You Dip or Chew Tobacco: No; Hx Alcohol Use: Yes Alcohol type: wine Hx Substance Use: No Preferred Language: Korean Communication Ability: Effective Grounds Foreman Required: No Beliefs That Will Affect Care: None marital status: Current Living Situation: Spouse current occupational status: retired Feels Safe at Home: Yes Safety Concerns: Feels Safe At This Time Assistive Devices: Contacts, Glasses, Nebulizer and Walker Review of Systems All systems reviewed & are unremarkable except as noted in HPI & below. Physical Exam On physical examination of the left knee, she walks with a rolling walker because of her knee pain. She has range of motion of 0 to 120 degrees. There is no effusion. She has pain mostly over the tibial plateau.. Constitutional WD/WN, vitals as above Eyes PERRL, conjunctivae normal, anicteric sclerae ENMT external ear and nose normal, oropharynx normal Neck trachea midline, no thyromegaly Respiratory normal respiratory effort, lungs clear to auscultation Cardiovascular RRR, no murmur, no edema Gastrointestinal (Abdomen) normal bowel sounds, soft, nontender, no hepatosplenomegaly Skin no rashes, warm and dry Psychiatric A+Ox3, euthymic affect Results & Data Results & Data Laboratory Results . Diagnostic Findings X-rays of the left knee show some questionable loosening at the tibial plateau but I do not see any loosening around the stem. CT scan of the left knee shows some loosening of the posterior medial aspect of the tibial plateau but no loosening around the stem Bone scan of the left knee shows some loosening of the tibial prosthesis.. PG Care Time/CCT Total # of Minutes Spent Total Time Spent with Patient: Total time spent is greater than 50% in coordination of care (as documented) at patient's floor/unit and/or counseling patient: Coding Level of Care Code None Diagnoses Aseptic loosening of prosthetic knee T84.038A; Z96.659
[~2022-04-29 09:51] MED LIST changes: +BUPIVACAINE 0.5 % 5 MG/1 ML PF 10ML VIAL ONE; -EPINEPHRINE INSTIL SCH; -EPINEPHRINE IV SCH; -HCL INSTIL SCH; -KETOROLAC IV SCH; +Ketorolac (*for OR use only*) 30 MG, dexAMETHasone 4 MG, KETAMINE HCL (**OR use only) 1... INFIL SCH; +ORTHO JOINT MIX INFIL SCH; -ROPIVACAINE 0.5% HCL/PF 150 MG, BUPIVACAINE 0.75% MPF 20 ML, EPINEPHrine 30MG/30ML (OR ... INSTIL SCH; -ROPIVACAINE INSTIL SCH; -[UNRECOGNIZED DRUG - OTHER] INSTIL SCH; -[UNRECOGNIZED DRUG - OTHER] IV SCH
[2022-04-29] MEDS ORDERED: ONDANSETRON INJ 2 MG/ML 2 ML VIAL IV PRN ×2 (11:02→16:34)
[2022-04-29] MEDS ORDERED: ePHEDrine sulfate 50 MG/ML AMP IV PRN (11:02)
[2022-04-29] MEDS ORDERED: fentaNYL citrate 100 MCG/2 ML VIAL IV PRN (11:02)
[2022-04-29] MEDS ORDERED: ATROPINE SULFATE 0.1 MG/ML 10ML SYR IV PRN (11:02)
[2022-04-29] MEDS ORDERED: MIDAZOLAM HCL 1 MG/ML 2ML VIAL ONE (11:40)
[2022-04-29] MEDS ORDERED: PROPOFOL IV EMULSION 10 MG/ML 20 ML VIAL IV ONE ×2 (11:40→14:49)
[2022-04-29] MEDS ORDERED: ORTHO JOINT ANESTHETIC ONE (12:45)
[2022-04-29] MEDS ORDERED: LABETALOL HCL IV 5 MG/ML 20ML IV ONE (14:25)
[2022-04-29] MEDS ORDERED: LIDOCAINE 2% MPF LOCAL 5 ML VIAL INFIL ONE (14:25)
--- NOTE | 2022-04-29 15:27 | Operative Report ---
PG Post Operative Report Pre & Post Diagnosis Operation Date: 04/16/22 13:20 Aseptic loosening left knee tibial component Operation Date: 04/29/22 12:30 Aseptic loosening left knee tibial component I identified the patient and participated in the time-out.: Yes Procedure Operation Date: 04/16/22 13:20 Revision left total knee arthroplasty with revision of the tibial component. Operation Date: 04/29/22 12:30 <No data on this case meets the specified criteria> Surgeon Jamey Bratlett DO Necktie Turner Jamey Messina PA-C Estimated Blood Loss 20 Findings Consistent with Post-Op Diagnosis Specimens Four frozen sections were obtained. 3 of the 4 frozen sections showed 0 PMNs per high-power field. One of the frozen sections showed 0 PMNs throughout the majority of the sample, however, a single area did show 8 PMNs in a high-power field. The pathologist did not feel that this tissue indicated infection. Indications Qian is a pleasant 71-year-old female who I did a primary left knee replacement on about a year ago. She did well for the first 10 months. She then woke up and began having significant pain in her left knee. She is unable to take a step. X-rays did not look too bad. CAT scan did show some questionable loosening of the tibial component. She never had an effusion of her knee. Multiple aspirations were obtained in the office and I was never able to obtain any significant fluid. Sed rate and CRP were near normal. Full work-up of her lumbar spine was negative. She continued to complain of pain radiating from her knee down to her foot. Bone scan of the left knee then showed loosening of the tibial component. After failing conservative treatment for 3 months, she elected proceed with a revision left knee replacement. Description of Procedure Implants used: I used the Loren PRK system with a size D tibial component, a size 11 x 135 mm stem with a 3 mm offset and an 18 CPS polyethylene insert. The component was cemented with Biomet cement. On April 29, 2022 Qian arrived at [facility] for the above procedure. She was seen in the preoperative holding area and the operative extremity was identified and signed. She was given a preoperative antibiotic and a spinal anesthetic. She was taken back to the operating room and laid on the table in supine position. She was given basic sedation. The left knee was prepped and draped in sterile fashion. A timeout was done. The patient and the operative extremity was properly identified. The previous midline incision was opened back up. Dissection was taken down to the extensor mechanism. A medial parapatellar arthrotomy was used. Time was spent removing some tissue from the medial lateral gutters. For tissue samples were sent to pathology as frozen section. 3 of the 4 sections came back with 0 PMNs. The fourth came back with 0 PMNs for the majority of the sample but 1 area did show 8 PMNs in the high-power field. I discussed this with the pathologist and we did not feel there was enough to consider infection. The polyethylene insert was removed. The tibial component was grossly loose. The proximal tibia was then exposed. The tibia was then removed with a flexible osteotome and a slap hammer. Time was spent then removing any remnants of cemen t. Sequential reaming of the tibial canal was done up to a size 11 reamer. Off that reamer a proximal tibial cutting guide was placed. 2 additional millimeters were resected off the proximal tibia. The tibia measured to be a size D. Using a 3 mm offset I was able to get adequate coverage of the tibia. A trial tibial stem was then created on the back table. The trial stem was then impacted in the place. Several different polyethylene inserts were trialed and a size 18 seem to give the best fit. All trial implants were then removed. The final size D tibial component with an 11 x 135 mm stem and a 3 mm offset was then cemented into place. Cement was placed around the metaphyseal region and on the undersurface of the tibial tray. The knee was brought into full extension and held there until cement had completely dried. The knee was then brought through full range of motion. A size 18 mm polyethylene implant was then snapped into place. The tourniquet was then deflated and hemostasis was obtained. A 3-minute Betadine lavage was then done. The extensor mechanism was then closed with #1 Vicryl suture. Skin was closed with 2-0 Vicryl, 3 oh VueLock, and leah. She was then placed in a soft compressive dressing. She was then transferred to a hospital bed and taken to the postanesthesia care unit in stable condition. She tolerated the procedure well. Jamey Messina PA-C, was present for the entire procedure. He was critical for patient positioning, prepping, draping, retraction exposure, wound closure and application of sterile dressing. I attest to the content of the Intraoperative Record and any orders documented therein. Any exceptions are noted below.
--- NOTE | 2022-04-29 15:58 | XRay Report ---
TWO VIEWS LEFT KNEE CLINICAL HISTORY: Postoperative examination. FINDINGS: AP and crosstable lateral portable views of the left knee are obtained. A left knee arthrop lasty is in near anatomic alignment. There has been undersurface remodeling of the patella. No acute fracture is seen. There are expected postoperative changes around the knee including skin clips, soft tissue edema, and subcutaneous gas. There is atherosclerotic calcification of the popliteal artery. IMPRESSION: Expected postoperative changes status post left knee arthroplasty. No acute fracture is s een. ACT 112: Negative or not required by law. Electronically signed by: Luis Enrique Cheung M.D. 04/29/2022 3:57 PM
--- NOTE | 2022-04-29 16:21 | Anesthesiology Progress Note ---
Date of Service April 29, 2022 Anesthesia Post Procedure Vital Signs Vital Signs: Temp Pulse Pulse Resp BP Pulse Ox O2 Del Method 04/29/22 15:55 52 L 18 151/82 H 93 Nasal Cannula 04/29/22 15:45 54 L 14 140/82 93 Room Air 04/29/22 15:35 54 L 16 138/68 93 Room Air 04/29/22 15:29 36.4 C L 60 18 115/62 99 Oxymask 04/29/22 10:44 37 C 55 L 20 212/90 H 96 Room Air O2 Flow Rate 04/29/22 15:55 2 04/29/22 15:45 04/29/22 15:35 04/29/22 15:29 7 04/29/22 10:44 Pain Intensity Left Knee: Pain Intensity: 2 Transfer of Care Handoff Completed per policy Notes Mental Status: alert / awake / arousable Patient Amnestic to Procedure: Yes Nausea / Vomiting: adequately controlled Pain: adequately controlled Airway Patency, RR, SpO2: stable & adequate BP & HR: stable & adequate Hydration State: stable & adequate Neuraxial Anesthesia: was administered and sensory block is resolving Anesthetic Complications: no major complications apparent and Pt Satisfied with anesthetic care
[2022-04-29] MEDS ORDERED: MAGNESIUM HYDROXIDE SUSP 30 ML UDC PO PRN (16:34)
[2022-04-29] MEDS ORDERED: oxyCODONE HCL IR 5 MG TAB (IMMEDIATE RELEASE) PO PRN (16:34)
[2022-04-29] MEDS ORDERED: TRIAMCINOLONE ACET 0.1% CR 15 GM TUBE TOP PRN (16:34)
[2022-04-29] MEDS ORDERED: ALPRAZolam 0.25 MG TABLET PO PRN (16:34)
[2022-04-29] MEDS ORDERED: METOCLOPRAMIDE HCL INJ 5 MG/ML 2 ML VIAL IV PRN (16:34)
[2022-04-29] MEDS ORDERED: SODIUM CHLORIDE 0.9% 1000ML 1,000 ML IV SCH (16:34)
[2022-04-29] MEDS ORDERED: NALOXONE HCL 0.4 MG/1 ML VIAL/CARP IV PRN (16:34)
[2022-04-29] MEDS ORDERED: ALBUTEROL HFA 8 GM INHALER INH PRN (16:34)
[2022-04-29] MEDS ORDERED: HYDROmorphone INJ 0.5 MG/0.5 ML SYR IV PRN (16:34)
[2022-04-29] MEDS ORDERED: NITROGLYCERIN SL 0.4 MG/TAB TAB SL PRN (16:34)
[2022-04-29] MEDS ORDERED: FLUTICASONE PROPIONATE NA SPR 16 GM BTL PRN (16:34)
[2022-04-29] MEDS ORDERED: bisacodyL 10 MG SUPP PR PRN (16:34)
[2022-04-29] MEDS: KETOROLAC TROMETHAMINE 15 MG/ML VIAL IV SCH ×2 (16:53→22:01)
[2022-04-29] MEDS: carvediloL 6.25 MG TAB PO SCH (20:48)
[2022-04-29] MEDS: ASPIRIN 81 MG ECTAB PO SCH (20:49)
[2022-04-29] MEDS: DOCUSATE SODIUM 100 MG CAP PO SCH (20:49)
[2022-04-29] MEDS ORDERED: SENNA 8.6 MG TAB PO SCH (21:00)
[2022-04-29] MEDS: ACETAMINOPHEN 500 MG TAB PO SCH (22:01)
[2022-04-30] MEDS ORDERED: amLODIPine BESYLATE 5 MG TAB PO ONE (03:26)
--- NOTE | 2022-04-30 03:28 | Hospitalist Consultation ---
Date of Consultation April 30, 2022 Assessment & Plan (1) Status post revision of total replacement of left knee: 71yo Female with PMH cardiac stent x1, HTN, HLD, GERD, hypothyroidism, incontinence, obesity, osteoarthritis, chronic pain here for L knee replacement L knee replacement -POD 1, following ortho -pain control with ketorolac, dexamethasone, dilaudid, oxycodone, tylenol -continue bowel regime -check CBC HTN -overnight elevated 212/99 with brief episode 'brain fog' -patient managing BP at home with carvedilol BID, stopped HCTZ herself -patient to continue carvedilol 6.25mg BID -will resume HCTZ 25mg daily -check BMP, Mg, Lactate Hx. Cardiac Stent -continue ASA 81mg -continue carvedilol, HCTZ, rosuvastatin HLD -continue rosuvastatin Anxiety -continue PRN Xanax Hypothyroid -continue levothyroxine FENa: heart healthy Code Status: full DVT PPX: SCDs PT/OT: ordered Dispo: med/surg Shelly Blanton D.O. PGY 2, FCM (2) Morbid obesity: (3) Hypertension: (4) Hyperlipidemia: (5) GERD (gastroesophageal reflux disease): (6) CAD (coronary artery disease): (7) Atrial fibrillation: (8) Anxiety: Plan We have been consulted to assist with post-operative hypertension. In brief, patient is a 71yo female with history of AF, CAD, GERD, HTN, HLP presenting with aseptic loosening of LEFT knee prosthesis. Her initial knee arthroplasty was performed in March 2021. She had revision of the tibial component performed 04/29/[address] Bartlett. The surgery was well tolerated, spinal anesthesia and sedation given, EBL 20mL. Blood pressure 212/99, improved to 185/73 currently Patient complained of brief episode of "brain fog". Denies VITALE, visual disturbance, chest pain, palpitations, SOB, back pain. Reports blood pressure is occasionally high at home but typically not over 180mmHg. On exam she is resting comfortably, NAD Skin - intact, LLE with dressing in place HEENT -MMM, neck supple, no JVD Heart - +S1/S2, regular, 3/6 ISAAK at 2nd right ICS, no rubs/gallops Lungs - CTA Abd - soft, NT/ND Ext - warm, well perfused, SCDs in place, LLE wrapped Labs and images reviewed. Assessment/Plan Post-operative hypertension - most likely multifactorial - patient with positive fluid balance, Dexamethasone and Toradol administered intra-operatively. Presently denies pain. Patient's PM dose of Carvedilol was held 04/29/22 due to bradycardia. Patient self-discontinued her HCTZ prior to arrival. Hypertensive urgency with BP >180/110, asymptomatic -Recommend pain management -Resume patient's home medications - Carvedilol 6.25mg po BID and HCTZ 25mg po daily. Next dose due today at 0900 -Will continue to monitor - consider PRN PO Clonidine 0.1mg if blood pressure remains elevated greater than 180/110 after she has received her morning medications History of Present Illness Reason for Consultation: Post-operative hypertension Attending Physician: Jamey Bartlett, History of Present Illness 71yo Female with PMH cardiac stent x1, HTN, HLD, GERD, hypothyroidism, incontinence, obesity, osteoarthritis, chronic pain here for L knee replacement. Knee replacement performed by ortho on 04/29/22, tolerated procedure well not currently having any pain in her knee. She states she had an episode of 'brain fog' earlier that has resolved, wonders if it is due to her blood pressure. Patient states she stopped taking her HCTZ several weeks ago because she didn't like peeing so often. Patient denies any SOB, N/V, CP abd pain, change in sensation or weakness in extremities. She has baseline bowel and bladder incontinence. Complains of occasional pain on the lateral side of left leg, though it was originally due to her bad left knee however it still bothers her after surgery, notes that it shoots up her lower leg not reaching her knee. Prior MRI of her back was negative for nerve impingement. Patient sees her PCP Dr. Hernnadez in June. Allergies Allergy/AdvReac Type Severity Reaction Status Date / Time spironolactone Allergy Intermediate Hives Verified 04/29/22 10:37 Sulfa (Sulfonamide Allergy Intermediate hives Verified 04/29/22 10:37 Antibiotics) amlodipine Allergy Mild UNSURE OF Verified 04/29/22 10:37 REACTION ramipril [From Altace] Allergy Unknown UNSURE OF Verified 04/29/22 10:37 REACTION atorvastatin [From Lipitor] AdvReac Intermediate Leg pain Verified 04/29/22 10:37 hydrocodone AdvReac Mild N/V Verified 04/29/22 10:37 losartan AdvReac Mild Rash Verified 04/29/22 10:37 tramadol AdvReac Mild N/V Verified 04/29/22 10:37 valsartan AdvReac Mild Rash Verified 04/29/22 10:37 Home Medications Medication Instructions Recorded Confirmed Type alprazolam 0.25 mg tablet 0.25 mg PO TID PRN Anxiety 11/01/20 04/29/22 History carvedilol 6.25 mg tablet 6.25 mg PO BID 11/01/20 04/29/22 History cetirizine 10 mg capsule (Zyrtec) 10 mg PO DAILY PRN Allergy Symptoms 11/01/20 04/29/22 History fluticasone propionate 50 1 spray intranasal DAILY PRN 11/01/20 04/29/22 History mcg/actuation nasal Congestion spray,suspension (Flonase Allergy Relief) hydrochlorothiazide 25 mg tablet 25 mg PO QAM 11/01/20 04/29/22 History levothyroxine 75 mcg capsule 88 mcg PO QAM 11/01/20 04/29/22 History rosuvastatin 20 mg tablet 20 mg PO QDL 11/01/20 04/29/22 History triamcinolone acetonide 0.1 % 1 applic topical DAILY PRN Rash 11/01/20 04/29/22 History topical cream Beet Root 1 dose PO QAM 11/22/20 04/29/22 History Lactobacil.acidophilus-Bifido.animalis 1 cap PO QAM 11/22/20 04/29/22 History 5 billion cell sprinkle capsule (Probiotic) ascorbic acid (vitamin C) 500 mg 500 mg PO QAM 11/22/20 04/11/22 History tablet,extended release (Vitamin C ER) cholecalciferol (vitamin D3) 50 50 mcg PO QAM 11/22/20 04/29/22 History mcg (2,000 unit) tablet (Vitamin D3) vit C,E,zinc,copper-ohwrp3c 250 1 cap PO QAM 11/22/20 04/29/22 History mg-lutein 5 mg-zeaxanthin 1 mg capsule (Ocuvite Adult 50 Plus) albuterol sulfate 90 mcg/actuation 1 inh inhalation QID PRN SHORT OF 04/11/22 04/29/22 History aerosol inhaler BREATH aspirin 81 mg tablet,delayed 81 mg PO HS 04/11/22 04/29/22 History release nitroglycerin 0.4 mg sublingual 0.4 mg sublingual UD PRN Chest Pain 04/11/22 04/29/22 History tablet Patient History Medical History Anxiety Atrial fibrillation ? "I THINK SO">FOLLOWS WITH [facility]>KELLEN CUELLAR; no reported hx afib in available cardio documents CAD (coronary artery disease) S/p BMS to LAD in 2004 Angioplasty to LAD in [address] Morris [facility] Cardiac murmur mild to moderate aortic regurgitation GERD (gastroesophageal reflux disease) controlled, stable per pt Heart palpitations Hyperlipidemia Hypertension controlled, stable per pt Hypothyroidism LVH (left ventricular hypertrophy) Scoliosis "MILD" SOB (shortness of breath) on exertion follows with [facility], last rescue inhaler use > 3 months ago Thyroid nodule BIOPSY IN PAST Urinary leakage WITH FREQUENCY Surgical History H/O bilateral breast reduction surgery H/O total hysterectomy History of appendectomy History of arthroscopy LEFT KNEE History of blepharoplasty History of cardiac cath 2004 & 2005 > 1 TOTAL stent History of colonoscopy History of dilatation and curettage History of esophagogastroduodenoscopy (EGD) History of heart artery stent x1 > 2005 > for 90% blockage History of total knee replacement LEFT 04/06/21 SAB L4-L5 1 attempt + PNB. Hx of removal of cyst from back> fatty tumor Nausea and vomiting after administration of anesthetic agent denies needing scop patch Family History Father Prostate cancer Daughter Breast cancer Aunt Diabetes Brother Diabetes Other No family history of adverse response to anesthesia Social History Smoking Status: Never smoker Second Hand Exposure: No; Do You Dip or Chew Tobacco: No; Hx Alcohol Use: Yes Alcohol type: wine Hx Substance Use: No Preferred Language: Syriac Communication Ability: Effective Lining Stuffer Required: No Beliefs That Will Affect Care: None marital status: Current Living Situation: Spouse current occupational status: retired Feels Safe at Home: Yes Safety Concerns: Feels Safe At This Time Assistive Devices: Contacts, Glasses, Nebulizer and Walker Review of Systems Review of Systems: General: Patient denies fevers, chills, malaise, weight loss or weight gain Skin: Patient denies bruising, bleeding or rash HEENT: Patient denies headache, visual changes, sore throat, difficulty swallowing, stiff neck Cardio: Patient denies chest pain, palpitations, shortness of breath, lightheadedness Pulmonary: Patient denies cough, wheeze GI: Patient denies abdominal pain, nausea, vomiting, diarrhea, constipation : Patient denies dysuria, frequency, urgency or hematuria Musculoskeletal: Patient denies swelling or pain of the joints, edema Neuro: Patient denies numbness, tingling, weakness or falls Psych: Patient denies depression, anxiety Physical Exam Constitutional: + morbidly obese, cooperative and comfortable Eyes: PERRL, conjunctivae normal, anicteric sclerae ENMT: external ear and nose normal, oropharynx normal Neck: trachea midline, no thyromegaly Respiratory: normal respiratory effort, lungs clear to auscultation Cardiovascular: RRR, no murmur, no edema Gastrointestinal (Abdomen): Inspection/Auscultation: abdomen normal to inspection Percussion/Palpation: abdomen soft; abdomen nontender Musculoskeletal: bandages around left knee Skin: no rashes, warm and dry Results & Data Results & Data ([facility]) Vital Signs (Past 12 Hours) Vital Signs Temp Pulse Pulse Resp BP BP Pulse Ox 04/30/22 03:08 202/95 H 04/30/22 02:35 53 L 207/100 H 212/99 H 04/30/22 02:19 36.5 C 54 L 18 207/85 H 92 04/29/22 23:58 55 L 18 153/73 H 94 04/29/22 23:38 36.7 C 55 L 18 157/77 H 92 04/29/22 19:15 04/29/22 20:46 55 L 135/77 04/29/22 19:37 36.4 C L 66 18 120/65 98 04/29/22 18:21 36.7 C 76 17 125/74 94 04/29/22 18:06 36.7 C 80 17 117/69 91 04/29/22 16:50 36.7 C 70 17 125/75 92 04/29/22 16:20 04/29/22 16:50 36.3 C L 54 L 16 135/64 96 04/29/22 16:20 37.1 C 49 L 16 146/72 H 97 04/29/22 15:55 52 L 18 151/82 H 93 04/29/22 15:45 54 L 14 140/82 93 04/29/22 15:35 54 L 16 138/68 93 04/29/22 15:29 36.4 C L 60 18 115/62 99 O2 Del Method O2 Flow Rate 04/30/22 03:08 04/30/22 02:35 04/30/22 02:19 Room Air 04/29/22 23:58 Room Air 04/29/22 23:38 Room Air 04/29/22 19:15 Room Air 04/29/22 20:46 04/29/22 19:37 Room Air 04/29/22 18:21 Room Air 04/29/22 18:06 Room Air 04/29/22 16:50 Room Air 04/29/22 16:20 Nasal Cannula 2 04/29/22 16:50 Nasal Cannula 2 04/29/22 16:20 Nasal Cannula 2 04/29/22 15:55 Nasal Cannula 2 04/29/22 15:45 Room Air 04/29/22 15:35 Room Air 04/29/22 15:29 Oxymask 7 Laboratory Results Laboratory Results SARS-CoV-2, RNA, NAAT NEGATIVE (NEGATIVE) 04/29/22 Unknown Blood Type O Positive 04/29/22 10:16 Antibody Screen NEGATIVE 04/29/22 10:16 Impressions Knee X-Ray 04/29/22 15:28 TWO VIEWS LEFT KNEE CLINICAL HISTORY: Postoperative examination. FINDINGS: AP and crosstable lateral portable views of the left knee are obtained. A left knee arthroplasty is in near anatomic alignment. There has been undersurface remodeling of the patella. No acute fracture is seen. There are expected postoperative changes around the knee including skin clips, soft tissue edema, and subcutaneous gas. There is atherosclerotic calcification of the popliteal artery. IMPRESSION: Expected postoperative changes status post left knee arthroplasty. No acute fracture is seen. ACT 112: Negative or not required by law. Electronically signed by: Luis Enrique Cheung M.D. 04/29/2022 3:57 PM Resident Activity Tracking Resident Involvement: Resident Care Provided Care Provided: Adult [facility]
[2022-04-30] MEDS: KETOROLAC TROMETHAMINE 15 MG/ML VIAL IV SCH ×2 (04:05→10:53)
--- NOTE | 2022-04-30 05:20 | Billing Data ---
Date of Service April 30, 2022 Coding Level of Care Code INP/OBS CONSULT LVL 3, 45 MIN
[2022-04-30] MEDS: ACETAMINOPHEN 500 MG TAB PO SCH (06:04)
--- NOTE | 2022-04-30 06:20 | Orthopedic Progress Note ---
Date of Service April 30, 2022 Assessment & Plan (1) Status post revision of total replacement of left knee: Overall she is doing very well. She is not having much pain in the left knee. She will be seen by physical therapy today for ambulation and range of motion exercises. She is on aspirin for DVT prophylaxis. As long as she does well with physical therapy, and her vital signs remained stable, she can be discharged home later today. She will follow-up orthopedics in 2 weeks. Jackie Laughlin was seen and examined at bedside this morning. Overall she is doing fairly well. She is not having too much pain in the left knee. She has been up and ambulated to the bathroom. She has no complaints.. Review of Systems All systems reviewed & are unremarkable except as noted in HPI & below. Physical Exam On physical examination of the left knee, the dressing is clean and dry. Her leg is out full extension. She has active dorsiflexion plantarflexion of her left ankle.. Results & Data Results & Data Laboratory Results . Diagnostic Findings Postoperative x-rays of the left knee show the prosthesis to be in anatomic alignment without any evidence of fracture, screws, or loosening. PG Care Time/CCT Total # of Minutes Spent Total Time Spent with Patient: Total time spent is greater than 50% in coordination of care (as documented) at patient's floor/unit and/or counseling patient: Coding Level of Care Code 58441 Post Operative Follow-Up Diagnoses Status post revision of total replacement of left knee Z96.652
--- NOTE | 2022-04-30 06:21 | Discharge Summary ---
Date of Service April 30, 2022 Admission HPI (Per Admitting) Qian is a pleasant 71-year-old female who I did a left knee replacement on in March 2021. She did very well for the first year. In January 2022 she woke up and began having significant pain in her left knee. She has been almost unable to bear weight on it. Initial x-rays did not look too bad. I did get a CT scan of the left knee which showed some possible early loosening of the tibial implant. She was having some pain that was radiating down her tibia towards her foot. I also obtain x-rays and an MRI of her lumbar spine which was essentially negative. She never had an effusion. I have done multiple aspiration attempts in the office and was unable to aspirate any fluid. Her sed rate and CRP were very slightly elevated but near normal. After failing about 3 months of conservative treatment, her symptoms were not improving. I obtained a bone scan of the left knee and it showed loosening of the tibial prosthesis. She has elected to proceed with a revision left knee replacement surgery.. Admission Exam (Per Admitting) On physical examination of the left knee, she walks with a rolling walker because of her knee pain. She has range of motion of 0 to 120 degrees. There is no effusion. She has pain mostly over the tibial plateau.. Principal Diagnosis Same as "Discharge Diagnosis" noted below under Discharge Instructions. Discharge Exam On physical examination of the left knee, the dressing is clean and dry. Her leg is out full extension. She has active dorsiflexion plantarflexion of her left ankle.. Discharge Data Consultations 04/30/22 02:55 Consult Hospitalist Routine Procedures Performed Operation Date: 04/16/22 13:20 <No data on this case meets the specified criteria> Operation Date: 04/29/22 12:30 Actual Procedures p Revision of Tibial Components and Polyethylene Liner Left Total Knee Arthroplasty(Left) - Jamey Bartlett DO Ordered Studies 04/29/22 05:00 US - OR guided needle placemen Routine Hospital Course (1) Status post revision of total replacement of left knee: On April 29, 2022 Qian arrived at [facility] and underwent a revision left knee replacement without complication. She had a spinal anesthetic. Postoperatively she was started on aspirin for DVT prophylaxis and transferred to the general orthopedic floors. Her hospital course was uneventful. On postop day #1, her vital signs were stable and her pain was well controlled. She was able to participate well with physical therapy doing ambulation and range of motion exercises. She was then discharged home. She will follow-up orthopedics in 2 weeks. PG Care Time/CCT Total # of Minutes Spent Total Time Spent with Patient: Total time spent is greater than 50% in coordination of care (as documented) at patient's floor/unit and/or counseling patient: Discharge Plan Discharge Items Patient Disposition: Home - Home Health Services Reason For Visit: POST OP Discharge Diagnosis: Revision left knee replacement Activity: Per Instructions section Non-emergency contact: Surgeon Call non-emergency contact if: your wound has increased redness and your wound has increased drainage Follow-up/Referrals: Guanaco Hernandez M.D. [Primary Care Provider] - Diet: Regular Addtl Attending Provider Instructions: Activity and Therapy Recommendations: * If you are using [facility] then therapy will be provided at your home until they feel you have accomplished all of your goals. * If you are using [facility] then Physical Therapy will be provided until they feel you are ready to start Outpatient Physical Therapy. * If you are not using home therapy then Outpatient Physical Therapy should start about 3-5 days from your day of surgery. Therapy will last about 6-10 weeks * It is important not to put a pillow under your knee when you are relaxing or sleeping. It is just as important to make sure you are getting your knee perfectly straight as it is to regain your knee bend. * You were shown a series of exercises in the hospital. Do these exercises three times each day including the exercises you were shown in physical therapy. * Get up and walk several times each day. For the first four weeks, try not to stand or walk for more than one hour at a time. If you do stand or walk for more than one hour, you will not hurt anything, but your leg will likely swell. * As you feel comfortable, you may change from the walker or crutches to a cane and then to independent walking. Medications: * Narcotic You will likely be sent home from the hospital with a prescription for the narcotic pain medication that worked best throughout your stay. * Aspirin Most patients will be required to take Aspirin 81mg twice a day for 6 weeks after surgery. This is obtained [id number] and a prescription is not necessary. * Other medications may be prescribed for specific circumstances. If you have any questions, please call the office at . * Resume previous home medications unless otherwise instructed TEDs/Elastic Stockings: The white elastic stockings help limit swelling and prevent blood clots from forming in your legs.~ The more you wear them, the more they work. Wear them for six weeks. Dressing Care: The dressing can be changed after physical therapy on postop day #1. Daily dry dressing changes for a few days, especially if the incision is still draining some. If the incision is not draining then you may leave the leah open to air. If there is a little bit of drainage or if the leah are getting stuck on your clothing then cover the incision with a dry dressing. The leah will be removed at your 2 week follow-up appointment. Showering: You may shower 5 days from the day of surgery as long as the incision is no longer draining. You may shower with the leah exposed. Let soapy water run over the leah and pat them dry. Do not scrub or soak the incision. Things To Watch For: * Drainage from the incision site that occurs more than one week after your surgery. * Increased redness at the incision site. * Fever above 102 degrees Fahrenheit. * Unusual chest pain or shortness of breath. * Call [facility] at with any of the above problems Follow-Up Visit: Follow-up with Dr. Bartlett's PA (Jamey Messina) 2-3 weeks after your day of surgery. He will remove your leah and answer any questions. If you have any additional questions or concerns, Dr Bartlett is usually in the office at the same time and will be available An appointment was probably scheduled when you signed-up for surgery in the office. If you have any questions call Office Instructions: More detailed instructions as well as Frequently Asked Questions were provided in a folder by our office when you signed-up for surgery. Please review these instructions when you get home. If you have any further questions or concerns, please feel free to call the office at [phone] Pending Studies at Discharge: No Stand-Alone Forms: [facility] Medications and DC Order Prescriptions: Continued levothyroxine 75 mcg capsule 88 mcg PO QAM carvedilol 6.25 mg tablet 6.25 mg PO BID Rx Instructions: must administer with a meal/food hydrochlorothiazide 25 mg tablet 25 mg PO QAM rosuvastatin 20 mg tablet 20 mg PO QDL Zyrtec 10 mg capsule 10 mg PO DAILY PRN (Reason: Allergy Symptoms) triamcinolone acetonide 0.1 % cream 1 applic topical DAILY PRN (Reason: Rash) fluticasone propionate [Flonase Allergy Relief] 50 mcg/actuation spray,suspension 1 spray intranasal DAILY PRN (Reason: Congestion) Rx Instructions: administer into each nostril alprazolam 0.25 mg tablet 0.25 mg PO TID PRN (Reason: Anxiety) ascorbic acid (vitamin C) [Vitamin C] 500 mg Tablet Extended Release 500 mg PO QAM cholecalciferol (vitamin D3) [Vitamin D3] 50 mcg (2,000 unit) Tablet 50 mcg PO QAM Ocuvite Adult 50 Plus 250-5-1 mg Capsule 1 cap PO QAM Probiotic 5 billion cell Capsule, Sprinkle 1 cap PO QAM Beet Root 1 dose PO QAM nitroglycerin 0.4 mg Tablet, Sublingual 0.4 mg sublingual UD PRN (Reason: Chest Pain) albuterol sulfate 90 mcg/actuation Hfa Aerosol Inhaler 1 inh INHALATION QID PRN (Reason: SHORT OF BREATH) aspirin 81 mg tablet,delayed release (DR/EC) 81 mg PO BID 42 Days Qty: 0 0RF Admission Data Admit Date/Time: 04/29/22 15:28 Attending Provider: Jamey Bartlett Admit Provider: Jamey Bartlett Primary Care Provider: Guanaco Hernandez
[2022-04-30] MEDS ORDERED: LEVOTHYROXINE SODIUM 88 MCG TABLET PO SCH (06:30)
[2022-04-30 07:00] LABS: Basophils # (auto) 0.02 K/uL (0-0.2); Basophils % (auto) 0.1 %; Hematocrit (blood only) 38.2 % (37.0-47.0); Hemoglobin 12.4 g/dl (12.0-16.0); Immature Granulocytes # (auto) 0.06 K/uL (0.01-0.20); Immature Granulocytes % (auto) 0.4 %; Lymphocytes # (auto) 0.75 K/uL (1.2-3.4); Lymphocytes % (auto) 5.5 %; Mean Corpuscular Hemoglobin 28.3 pg (25.0-34.0); Mean Corpuscular Hgb Conc 32.5 g/dL (32.0-36.0); Mean Corpuscular Volume 87.2 fL (80.0-100.0); Mean Platelet Volume 9.7 fL (9.4-12.4); Monocytes % (auto) 6.7 %; Neutrophils # (auto) 11.79 K/uL (1.40-6.50); Neutrophils % (auto) 87.3 %; Platelet Count 197 K/uL (130-400); RDW Coefficient of Variation 14.4 % (11.5-14.5); RDW Standard Deviation 46.3 fL (36.4-46.3); Red Blood Count 4.38 M/uL (4.20-5.40); White Blood Count 13.52 K/ul (4.8-10.8)
[2022-04-30 07:14] LABS: BUN Creatinine Ratio 33.3 (10-20); Calcium 9.3 mg/dl (8.5-10.1); Creatinine Clr Calc Pharmacy 100.7 ml/min; Est GFR (African American) 107.3 ml/min; Est GFR (Non-African American) 92.6 ml/min; Potassium 4.7 mmol/L (3.5-5.1)
[2022-04-30] MEDS ORDERED: dexAMETHasone 4 MG TAB PO SCH (08:00)
[2022-04-30] MEDS: DOCUSATE SODIUM 100 MG CAP PO SCH (08:02)
[2022-04-30] MEDS: carvediloL 6.25 MG TAB PO SCH (08:02)
[2022-04-30] MEDS: ASPIRIN 81 MG ECTAB PO SCH (08:02)
[2022-04-30] MEDS ORDERED: MULTIVITAMIN TAB PO SCH (09:00)
[2022-04-30] MEDS ORDERED: CEROVITE ADV FORMULA TAB PO SCH (09:00)
[2022-04-30] MEDS ORDERED: hydroCHLOROthiazide 25 MG TAB PO SCH (09:00)
[2022-04-30] MEDS ORDERED: hydrALAZINE HCL 20 MG/ML VIAL IV STA (11:10)
[2022-04-30] MEDS ORDERED: ROSUVASTATIN CALCIUM 20 MG TAB PO SCH (11:30)
== END 2022-04-30 13:19 | disposition home health service (06) ==
LOC: 3W 09:51 → ASU 09:51